=== PATIENT | male | born 1980 | race Caucasian/White ===

== ENCOUNTER 2016-08-17 15:00 | Emergency (ER) | payer OTHER ==
[~2016-08-17] VITALS: Ht 170.2 cm; Wt 104.3 kg
[2016-08-17] MEDS ORDERED: TRAM50TA2 PO (15:37)
[2016-08-17] MEDS ORDERED: NAPR500T3 PO (15:37)
[2016-08-17] MEDS ORDERED: CYCL5TAB PO (15:37)
--- NOTE | 2016-08-17 16:17 | NUR ---
Pt dc;ed home w/ acio , pt given referral for pain mangement.
[2016-08-17 16:18] VITALS: BP 130/82
== END 2016-08-17 16:19 | disposition home or self-care (01) ==
LOC: ER 15:05
DX: M54.32 Sciatica, left side (principal); F12.10 Cannabis abuse, uncomplicated
CPT/HCPCS: 99283; A4663

== ENCOUNTER 2016-09-01 15:50 | Emergency (ER) | payer OTHER ==
[~2016-09-01] VITALS: Ht 170.2 cm; Wt 104.3 kg
[~2016-09-01 15:50] MED LIST: CYCL5TAB PO; NAPR500T3 PO; TRAM50TA2 PO
[2016-09-01 18:11] VITALS: BP 121/71
--- NOTE | 2016-09-01 18:11 | NUR ---
Patient discharged to home in stable conditon. Written and verbal after care instructions given. Patient verbalizes understanding of instructions.
[2016-09-01] MEDS ORDERED: HYDROCODONE/APAP 5-325MG TABLET PO ONE (18:15)
[2016-09-01] MEDS ORDERED: predniSONE 20 MG TABLET PO ONE (18:15)
[2016-09-01] MEDS ORDERED: predniSONE 10 MG TABLET ONE (18:22)
[2016-09-01] MEDS ORDERED: HYDROCODONE/APAP 5-325MG TABLET ONE (18:22)
[2016-09-01] MEDS ORDERED: predniSONE 50 MG TABLET ONE (18:22)
== END 2016-09-01 18:15 | disposition home or self-care (01) ==
LOC: ER 15:50
DX: M54.32 Sciatica, left side (principal); F12.10 Cannabis abuse, uncomplicated
CPT/HCPCS: A4663; J7512